=== PATIENT | female | born 1950 | race Caucasian/White ===

== ENCOUNTER 2017-08-06 09:30 | Day surgery (SDC) | payer BC, MEDICARE ==
[~2017-08-06] VITALS: Ht 1 cm; Wt 0.5 kg
[~2017-08-06 09:30] MED LIST: CHLO25TA22 PO; LOSA50TA6 PO; PANT40TA2 PO; SIMV-8 PO
[2017-08-06] MEDS ORDERED: ceFAZolin 1GM/50ML D5W 50 ML IV ONE (10:04)
[2017-08-06] MEDS ORDERED: MEPERIDINE HCL (50 MG/ML) 1 ML VIAL ONE (10:41)
[2017-08-06] MEDS ORDERED: MIDAZOLAM HCL 1MG/1ML-2 ML VIAL ONE (10:41)
[2017-08-06] MEDS ORDERED: fentaNYL CITRATE 100 MCG/2 ML VL ONE (10:41)
[2017-08-06] MEDS ORDERED: PROPOFOL 10 MG/ML 20 ML IV ONE (10:43)
[2017-08-06] MEDS ORDERED: DEXAMETHASONE SOD PHOS 10MG/1ML VIAL INJ ONE (10:43)
[2017-08-06] MEDS ORDERED: BUPIVACAINE 0.25% INJ 50ML VIAL ONE (10:59)
[2017-08-06] MEDS ORDERED: KETOROLAC TROMETH 30 MG/ML 1ML VIAL IV ONE (11:45)
[2017-08-06] MEDS ORDERED: ePHEDrine SULFATE 50 MG/ML AMP IV PRN (11:45)
[2017-08-06] MEDS ORDERED: ONDANSETRON HCL 4 MG/2 ML VIAL IV ONE (11:45)
[2017-08-06] MEDS ORDERED: HYDROmorphone HCL 2 MG/ML VL IV PRN (11:45)
[2017-08-06] MEDS ORDERED: LABETALOL HCL 5 MG/ML 4ML SYRINGE IV PRN (11:45)
[2017-08-06] MEDS ORDERED: MIDAZOLAM HCL 1MG/1ML-2 ML VIAL IV PRN (11:45)
[2017-08-06] MEDS ORDERED: MORPHINE SULF INJ 2 MG/ML SYRINGE 1ML IV ONE (12:00)
[2017-08-06 12:29] VITALS: BP 113/79
== END 2017-08-06 12:25 | disposition home or self-care (01) ==
LOC: SUR 09:30
PROVIDERS: ATTEND Orthopaedic Surgery
DX: S92.411A Displaced fracture of proximal phalanx of right great toe, initial encounter for closed fracture (principal); X58.XXXA Exposure to other specified factors, initial encounter; Y93.89 Activity, other specified; Y92.89 Other specified places as the place of occurrence of the external cause; Y99.8 Other external cause status
CPT/HCPCS: 28505; 73660; 76000; J0690; J1100; J2175; J2250; J2704; J3010; J3490